=== PATIENT | female | born 1965 | race Caucasian/White ===

== ENCOUNTER 2023-03-19 22:25 | Inpatient (IN) | payer MEDICAID, OTHER ==
[2023-03-20] MEDS ORDERED: Acetaminophen 650 MG Suppository PR PRN (03:06)
[2023-03-20] MEDS ORDERED: Ondansetron PF 4 MG/2 ML Vial IVP PRN ×2 (03:06→12:17)
[2023-03-20] MEDS ORDERED: Dextrose 50% Abboject 50 ML SYRINGE SLOW IVP PRN (03:26)
[2023-03-20] MEDS ORDERED: Glucagon 1 MG/ML KIT IM PRN (03:26)
[2023-03-20] MEDS ORDERED: Dextrose 5% in Water 1,000 ML IV PRN (03:26)
[2023-03-20] MEDS: Piperacillin/Tazobactam 3.375 GM in Sodium Chloride 0.9% 100 ML IVPB SCH ×3 (04:39→19:21)
[2023-03-20] MEDS: Morphine 4 MG/ML VIAL SLOW IVP PRN ×2 (04:50→16:41)
[2023-03-20] MEDS: Acetaminophen 325 MG TAB PO PRN (04:54)
[2023-03-20] MEDS: Sodium Chloride 0.9% 1,000 ML IV SCH ×2 (06:06→14:20)
[2023-03-20 06:56] LABS: #Monocytes 1.6 thou/uL (0.11-0.59); #Neutrophils 13.6 thou/uL (1.40-6.50); %Basophils 0.2 % (0.0-1.0); %Eosinophils 0.1 % (0.0-10.0); %Lymphocytes 7.4 % (21.0-51.0); %Monocytes 9.5 % (0.0-10.0); %Neutrophils 82.2 % (42.0-75.0); Hematocrit 32.3 % (36.0-47.0); Hemoglobin 10.5 g/dL (12.0-16.0); Mean Corpuscular HGB CONC 32.5 g/dL (32.0-36.0); Mean Corpuscular Hemoglobin 31.2 pg (27.0-31.0); Mean Corpuscular Volume 95.8 fl (78.0-98.0); Mean Platelet Volume 11.2 fL (7.4-10.4); Platelet Count 154 10x3/uL (130-400); RBC Distribution Width 14.5 % (11.5-14.5); Red Blood Cell (RBC) Count 3.37 mill/uL (4.20-5.40); White Blood Cell (WBC) Count 16.5 10x3/uL (4.8-10.8)
[2023-03-20 07:49] LABS: Anion Gap 13 mmol/L (10-20); BUN (Urea Nitrogen) 27 mg/dL (9.8-20.1); Calc. Creatinine Clearance 105 mL/min (70-130); Calcium 7.8 mg/dL (7.8-10.44); Carbon Dioxide 20 mmol/L (22-29); Chloride 103 mmol/L (98-107); Estimated GFR 81; Glucose 190 mg/dL (70-105); Potassium 3.6 mmol/L (3.5-5.1); Sodium 132 mmol/L (136-145)
[2023-03-20 07:57] LABS: SARS-CoV-2 NAA Rapid Test Not Detected (NotDetected)
[2023-03-20] MEDS: Vancomycin (BATCH) 1.25 GM in Premix 1 BAG IVPB SCH ×2 (10:11→23:30)
[2023-03-20] MEDS ORDERED: PROPOFOL 20 ML ONE (11:09)
[2023-03-20] MEDS ORDERED: Ondansetron PF 4 MG/2 ML Vial ONE (11:40)
[2023-03-20] MEDS ORDERED: Dexamethasone 20 MG/5 ML VIAL ONE ×2 (11:40→11:58)
[2023-03-20] MEDS ORDERED: Lidocaine 1% PF 5 ML VIAL ONE (11:40)
[2023-03-20] MEDS ORDERED: fentaNYL 50 mcg/mL 1 mL Vial ONE (11:49)
[2023-03-20] MEDS ORDERED: PHENYLEPHRINE-NS 100 MCG/ML 10 ML SYRINGE ONE (11:57)
[2023-03-20] MEDS ORDERED: Promethazine HCl 25 MG/ML VIAL IM PRN (12:17)
[2023-03-20] MEDS ORDERED: Ipratropium/Albuterol 3 ML NEB NEB PRN (12:17)
[2023-03-20] MEDS: Gabapentin 300 MG CAP PO SCH ×2 (14:45→20:16)
[2023-03-20] MEDS: HumaLOG 300 UNITS/3 ML VIAL SC PRN ×2 (16:41→20:17)
[2023-03-20] MEDS: Metoprolol Tartrate 25 MG TAB PO SCH (20:16)
[2023-03-20] MEDS: metFORMIN 500 MG TAB PO SCH (20:16)
[2023-03-20] MEDS: Atorvastatin Calcium 10 MG TAB PO SCH (20:16)
[2023-03-20] MEDS: traMADol HCl 50 MG TAB PO PRN (20:19)
[2023-03-21] MEDS: Piperacillin/Tazobactam 3.375 GM in Sodium Chloride 0.9% 100 ML IVPB SCH ×3 (04:37→22:50)
[2023-03-21] MEDS: HumaLOG 300 UNITS/3 ML VIAL SC PRN ×2 (04:37→12:16)
[2023-03-21] MEDS: fentaNYL 50 mcg/mL 1 mL Vial SLOW IVP PRN ×2 (04:42→16:34)
[2023-03-21 05:08] LABS: #Monocytes 1.5 thou/uL (0.11-0.59); #Neutrophils 14.1 thou/uL (1.40-6.50); %Basophils 0.2 % (0.0-1.0); %Lymphocytes 6.6 % (21.0-51.0); %Monocytes 8.7 % (0.0-10.0); %Neutrophils 83.7 % (42.0-75.0); Hematocrit 36.3 % (36.0-47.0); Hemoglobin 11.5 g/dL (12.0-16.0); Mean Corpuscular HGB CONC 31.7 g/dL (32.0-36.0); Mean Corpuscular Hemoglobin 30.7 pg (27.0-31.0); Mean Corpuscular Volume 97.1 fl (78.0-98.0); Mean Platelet Volume 11.2 fL (7.4-10.4); Platelet Count 172 10x3/uL (130-400); RBC Distribution Width 14.5 % (11.5-14.5); Red Blood Cell (RBC) Count 3.74 mill/uL (4.20-5.40); White Blood Cell (WBC) Count 16.8 10x3/uL (4.8-10.8)
[2023-03-21 05:36] LABS: Anion Gap 14 mmol/L (10-20); BUN (Urea Nitrogen) 28 mg/dL (9.8-20.1); Calc. Creatinine Clearance 106 mL/min (70-130); Calcium 8.4 mg/dL (7.8-10.44); Carbon Dioxide 22 mmol/L (22-29); Chloride 103 mmol/L (98-107); Estimated GFR 82; Glucose 224 mg/dL (70-105); Sodium 135 mmol/L (136-145)
[2023-03-21 08:17] LABS: Vancomycin, Trough 22.8 ug/mL
[2023-03-21] MEDS: Vancomycin HCl 750 MG in Sodium Chloride 0.9% 250 ML 250 ML IVPB SCH ×2 (09:17→20:49)
[2023-03-21] MEDS: Metoprolol Tartrate 25 MG TAB PO SCH ×2 (09:18→20:48)
[2023-03-21] MEDS: Empagliflozin 10 MG TAB PO SCH (09:18)
[2023-03-21] MEDS: Famotidine 20 MG TAB PO SCH (09:18)
[2023-03-21] MEDS: metFORMIN 500 MG TAB PO SCH ×2 (09:18→20:49)
[2023-03-21] MEDS: Gabapentin 300 MG CAP PO SCH ×3 (09:18→20:46)
[2023-03-21] MEDS ORDERED: Magnevist 469MG/ML 20 ML VIAL ONE (12:11)
[2023-03-21] MEDS: traMADol HCl 50 MG TAB PO PRN (15:01)
[2023-03-21 16:58] VITALS: BMI 31.1
[2023-03-21] MEDS: Atorvastatin Calcium 10 MG TAB PO SCH (20:48)
[2023-03-22] MEDS: fentaNYL 50 mcg/mL 1 mL Vial SLOW IVP PRN ×3 (03:27→20:46)
[2023-03-22] MEDS: Piperacillin/Tazobactam 3.375 GM in Sodium Chloride 0.9% 100 ML IVPB SCH ×2 (05:18→11:31)
[2023-03-22] MEDS: Ondansetron ODT 4 MG TAB PO PRN (05:51)
[2023-03-22 06:36] LABS: #Basophils 0.1 thou/uL (0.0-0.2); #Eosinphils 0.2 thou/uL (0.0-0.7); #Monocytes 1.7 thou/uL (0.11-0.59); #Neutrophils 11.1 thou/uL (1.40-6.50); %Basophils 0.5 % (0.0-1.0); %Eosinophils 1.6 % (0.0-10.0); %Monocytes 10.8 % (0.0-10.0); %Neutrophils 72.2 % (42.0-75.0); Hematocrit 34.3 % (36.0-47.0); Hemoglobin 10.7 g/dL (12.0-16.0); Mean Corpuscular HGB CONC 31.2 g/dL (32.0-36.0); Mean Corpuscular Hemoglobin 30.3 pg (27.0-31.0); Mean Corpuscular Volume 97.2 fl (78.0-98.0); Platelet Count 175 10x3/uL (130-400); RBC Distribution Width 14.4 % (11.5-14.5); Red Blood Cell (RBC) Count 3.53 mill/uL (4.20-5.40); White Blood Cell (WBC) Count 15.3 10x3/uL (4.8-10.8)
[2023-03-22 07:03] LABS: Anion Gap 16 mmol/L (10-20); BUN (Urea Nitrogen) 19 mg/dL (9.8-20.1); CRP (Inflammatory) 9.56 mg/dL (= or < 0.5); Calc. Creatinine Clearance 127 mL/min (70-130); Calcium 8.2 mg/dL (7.8-10.44); Carbon Dioxide 18 mmol/L (22-29); Chloride 107 mmol/L (98-107); Estimated GFR 101; Glucose 117 mg/dL (70-105); Potassium 3.7 mmol/L (3.5-5.1); Sodium 137 mmol/L (136-145)
[2023-03-22] MEDS: Gabapentin 300 MG CAP PO SCH ×3 (09:25→20:37)
[2023-03-22] MEDS: Empagliflozin 10 MG TAB PO SCH (09:25)
[2023-03-22] MEDS: Metoprolol Tartrate 25 MG TAB PO SCH ×2 (09:25→20:37)
[2023-03-22] MEDS: Enoxaparin 30 MG (0.3 mL) SYRINGE SC SCH (09:25)
[2023-03-22] MEDS: metFORMIN 500 MG TAB PO SCH ×2 (09:25→20:37)
[2023-03-22] MEDS: Famotidine 20 MG TAB PO SCH (09:25)
[2023-03-22] MEDS: Vancomycin HCl 750 MG in Sodium Chloride 0.9% 250 ML 250 ML IVPB SCH ×2 (09:30→20:37)
[2023-03-22] MEDS: Atorvastatin Calcium 10 MG TAB PO SCH (20:37)
[2023-03-23] MEDS: Famotidine 20 MG TAB PO SCH (07:50)
[2023-03-23] MEDS: Empagliflozin 10 MG TAB PO SCH (07:51)
[2023-03-23] MEDS: Metoprolol Tartrate 25 MG TAB PO SCH ×2 (07:51→20:23)
[2023-03-23] MEDS: Gabapentin 300 MG CAP PO SCH ×3 (07:51→20:23)
[2023-03-23] MEDS: metFORMIN 500 MG TAB PO SCH ×2 (07:52→20:23)
[2023-03-23] MEDS: Vancomycin HCl 750 MG in Sodium Chloride 0.9% 250 ML 250 ML IVPB SCH ×2 (07:52→20:24)
[2023-03-23] MEDS: Enoxaparin 30 MG (0.3 mL) SYRINGE SC SCH (07:52)
[2023-03-23] MEDS ORDERED: hydrALAZINE 20 MG/ML VIAL SLOW IVP PRN (08:23)
[2023-03-23 09:43] LABS: #Basophils 0.1 thou/uL (0.0-0.2); #Eosinphils 0.3 thou/uL (0.0-0.7); #Monocytes 1.7 thou/uL (0.11-0.59); #Neutrophils 9.8 thou/uL (1.40-6.50); %Basophils 0.7 % (0.0-1.0); %Eosinophils 2.2 % (0.0-10.0); %Lymphocytes 14.2 % (21.0-51.0); %Monocytes 11.8 % (0.0-10.0); %Neutrophils 69.3 % (42.0-75.0); Hemoglobin 11.1 g/dL (12.0-16.0); Mean Corpuscular HGB CONC 31.7 g/dL (32.0-36.0); Mean Corpuscular Hemoglobin 30.5 pg (27.0-31.0); Mean Corpuscular Volume 96.2 fl (78.0-98.0); Mean Platelet Volume 11.1 fL (7.4-10.4); Platelet Count 184 10x3/uL (130-400); RBC Distribution Width 14.1 % (11.5-14.5); Red Blood Cell (RBC) Count 3.64 mill/uL (4.20-5.40); White Blood Cell (WBC) Count 14.1 10x3/uL (4.8-10.8)
[2023-03-23] MEDS: fentaNYL 50 mcg/mL 1 mL Vial SLOW IVP PRN ×2 (10:26→20:23)
[2023-03-23] MEDS: Amlodipine 5 MG TAB PO SCH (10:27)
[2023-03-23] MEDS: Atorvastatin Calcium 10 MG TAB PO SCH (20:22)
[2023-03-23 20:52] LABS: Vancomycin, Trough 13.3 ug/mL
[2023-03-24 06:11] LABS: #Basophils 0.1 thou/uL (0.0-0.2); #Eosinphils 0.4 thou/uL (0.0-0.7); #Monocytes 1.9 thou/uL (0.11-0.59); #Neutrophils 9.8 thou/uL (1.40-6.50); %Basophils 0.9 % (0.0-1.0); %Eosinophils 2.9 % (0.0-10.0); %Lymphocytes 15.1 % (21.0-51.0); %Monocytes 12.5 % (0.0-10.0); %Neutrophils 64.7 % (42.0-75.0); Hematocrit 32.5 % (36.0-47.0); Hemoglobin 10.5 g/dL (12.0-16.0); Mean Corpuscular HGB CONC 32.3 g/dL (32.0-36.0); Mean Corpuscular Hemoglobin 30.7 pg (27.0-31.0); Mean Platelet Volume 10.8 fL (7.4-10.4); Platelet Count 208 10x3/uL (130-400); Red Blood Cell (RBC) Count 3.42 mill/uL (4.20-5.40); White Blood Cell (WBC) Count 15.2 10x3/uL (4.8-10.8)
[2023-03-24 06:50] LABS: Anion Gap 18 mmol/L (10-20); BUN (Urea Nitrogen) 16 mg/dL (9.8-20.1); CK (CPK) 15 U/L (29-168); Calc. Creatinine Clearance 123 mL/min (70-130); Calcium 8.6 mg/dL (7.8-10.44); Carbon Dioxide 20 mmol/L (22-29); Chloride 105 mmol/L (98-107); Estimated GFR 98; Glucose 193 mg/dL (70-105); Potassium 3.5 mmol/L (3.5-5.1); Sodium 139 mmol/L (136-145)
[2023-03-24] MEDS: Enoxaparin 30 MG (0.3 mL) SYRINGE SC SCH (08:11)
[2023-03-24] MEDS: metFORMIN 500 MG TAB PO SCH ×2 (08:12→21:23)
[2023-03-24] MEDS: Amlodipine 5 MG TAB PO SCH (08:12)
[2023-03-24] MEDS: Gabapentin 300 MG CAP PO SCH ×3 (08:12→21:23)
[2023-03-24] MEDS: Famotidine 20 MG TAB PO SCH (08:13)
[2023-03-24] MEDS: Metoprolol Tartrate 25 MG TAB PO SCH ×2 (08:13→21:23)
[2023-03-24] MEDS: Empagliflozin 10 MG TAB PO SCH (08:13)
[2023-03-24] MEDS: Vancomycin 1 GM in Premix 1 BAG IVPB SCH ×2 (08:13→21:22)
[2023-03-24] MEDS: Acetaminophen 325 MG TAB PO PRN (08:17)
[2023-03-24] MEDS: fentaNYL 50 mcg/mL 1 mL Vial SLOW IVP PRN ×2 (11:20→22:04)
[2023-03-24] MEDS: HumaLOG 300 UNITS/3 ML VIAL SC PRN ×2 (14:29→22:13)
[2023-03-24] MEDS: Atorvastatin Calcium 10 MG TAB PO SCH (21:23)
[2023-03-24] MEDS: traMADol HCl 50 MG TAB PO PRN (21:26)
[2023-03-25] MEDS: HumaLOG 300 UNITS/3 ML VIAL SC PRN ×2 (05:04→14:25)
[2023-03-25] MEDS: fentaNYL 50 mcg/mL 1 mL Vial SLOW IVP PRN ×2 (06:27→09:48)
[2023-03-25] MEDS: Famotidine 20 MG TAB PO SCH (08:22)
[2023-03-25] MEDS: Gabapentin 300 MG CAP PO SCH ×3 (08:22→20:38)
[2023-03-25] MEDS: Enoxaparin 30 MG (0.3 mL) SYRINGE SC SCH (08:22)
[2023-03-25] MEDS: Amlodipine 5 MG TAB PO SCH (08:23)
[2023-03-25] MEDS: Metoprolol Tartrate 25 MG TAB PO SCH ×2 (08:23→20:38)
[2023-03-25] MEDS: metFORMIN 500 MG TAB PO SCH ×2 (08:23→20:38)
[2023-03-25] MEDS: Empagliflozin 10 MG TAB PO SCH (08:23)
[2023-03-25] MEDS: SODIUM CHLORIDE 0.9% IVPB SCH (08:30)
[2023-03-25] MEDS: DAPTOMYCIN IVPB SCH (08:30)
[2023-03-25] MEDS ORDERED: Iopamidol-370 76% 500 ML MDV (1 ML CHARGE) ONE (13:05)
[2023-03-25] MEDS: Atorvastatin Calcium 10 MG TAB PO SCH (20:38)
[2023-03-26] MEDS: fentaNYL 50 mcg/mL 1 mL Vial SLOW IVP PRN ×3 (00:06→22:55)
[2023-03-26] MEDS: Metoprolol Tartrate 25 MG TAB PO SCH ×2 (08:19→20:34)
[2023-03-26] MEDS: Famotidine 20 MG TAB PO SCH (08:19)
[2023-03-26] MEDS: metFORMIN 500 MG TAB PO SCH ×2 (08:19→20:34)
[2023-03-26] MEDS: Ondansetron ODT 4 MG TAB PO PRN (08:19)
[2023-03-26] MEDS: Gabapentin 300 MG CAP PO SCH ×3 (08:20→20:34)
[2023-03-26] MEDS: Amlodipine 5 MG TAB PO SCH (08:20)
[2023-03-26] MEDS: Empagliflozin 10 MG TAB PO SCH (08:20)
[2023-03-26] MEDS: DAPTOMYCIN IVPB SCH (08:21)
[2023-03-26] MEDS: SODIUM CHLORIDE 0.9% IVPB SCH (08:21)
[2023-03-26] MEDS: Enoxaparin 30 MG (0.3 mL) SYRINGE SC SCH (08:27)
[2023-03-26] MEDS: HumaLOG 300 UNITS/3 ML VIAL SC PRN ×2 (13:11→18:20)
[2023-03-26] MEDS: metroNIDAZOLE 500 MG TAB PO SCH ×2 (15:50→20:34)
[2023-03-26] MEDS: Acetaminophen 325 MG TAB PO PRN (16:17)
[2023-03-26] MEDS: Atorvastatin Calcium 10 MG TAB PO SCH (20:34)
[2023-03-27] MEDS ORDERED: Sodium Bicarbonate 0.5 MEQ/ML SDV 10 ML ONE (07:39)
[2023-03-27] MEDS ORDERED: Lidocaine 1% PF 5 ML VIAL ONE (07:39)
[2023-03-27] MEDS: Amlodipine 5 MG TAB PO SCH (08:28)
[2023-03-27] MEDS: metroNIDAZOLE 500 MG TAB PO SCH ×3 (08:28→20:29)
[2023-03-27] MEDS: Famotidine 20 MG TAB PO SCH (08:28)
[2023-03-27] MEDS: Gabapentin 300 MG CAP PO SCH ×3 (08:29→20:29)
[2023-03-27] MEDS: metFORMIN 500 MG TAB PO SCH ×2 (08:29→20:30)
[2023-03-27] MEDS: Empagliflozin 10 MG TAB PO SCH (08:29)
[2023-03-27] MEDS: Metoprolol Tartrate 25 MG TAB PO SCH ×2 (08:29→20:29)
[2023-03-27] MEDS: Enoxaparin 30 MG (0.3 mL) SYRINGE SC SCH (10:55)
[2023-03-27] MEDS: SODIUM CHLORIDE 0.9% IVPB SCH (10:55)
[2023-03-27] MEDS: DAPTOMYCIN IVPB SCH (10:55)
[2023-03-27] MEDS: fentaNYL 50 mcg/mL 1 mL Vial SLOW IVP PRN ×2 (10:55→23:10)
[2023-03-27] MEDS: HumaLOG 300 UNITS/3 ML VIAL SC PRN (13:07)
[2023-03-27] MEDS: Acetaminophen 325 MG TAB PO PRN (13:10)
[2023-03-27] MEDS: Atorvastatin Calcium 10 MG TAB PO SCH (20:30)
[2023-03-28 06:22] LABS: #Basophils 0.1 thou/uL (0.0-0.2); #Eosinphils 0.5 thou/uL (0.0-0.7); #Monocytes 1.5 thou/uL (0.11-0.59); #Neutrophils 9.9 thou/uL (1.40-6.50); %Basophils 0.4 % (0.0-1.0); %Eosinophils 3.1 % (0.0-10.0); %Lymphocytes 20.1 % (21.0-51.0); %Monocytes 9.8 % (0.0-10.0); %Neutrophils 63.6 % (42.0-75.0); Hematocrit 32.6 % (36.0-47.0); Hemoglobin 10.4 g/dL (12.0-16.0); Mean Corpuscular HGB CONC 31.9 g/dL (32.0-36.0); Mean Corpuscular Hemoglobin 30.9 pg (27.0-31.0); Mean Corpuscular Volume 96.7 fl (78.0-98.0); Platelet Count 270 10x3/uL (130-400); RBC Distribution Width 13.9 % (11.5-14.5); Red Blood Cell (RBC) Count 3.37 mill/uL (4.20-5.40); White Blood Cell (WBC) Count 15.6 10x3/uL (4.8-10.8)
[2023-03-28 06:45] LABS: ALT (SGPT) 62 U/L (8-55); AST (SGOT) 93 U/L (5-34); Albumin 3.1 g/dL (3.5-5.0); Alkaline Phosphatase 269 U/L (40-110); Anion Gap 14 mmol/L (10-20); BUN (Urea Nitrogen) 16 mg/dL (9.8-20.1); Bilirubin, Total 0.3 mg/dL (0.2-1.2); Calc. Creatinine Clearance 113 mL/min (70-130); Calcium 8.9 mg/dL (7.8-10.44); Carbon Dioxide 24 mmol/L (22-29); Chloride 102 mmol/L (98-107); Estimated GFR 89; Globulin 4.5 g/dL (2.4-3.5); Glucose 149 mg/dL (70-105); Potassium 4.3 mmol/L (3.5-5.1); Protein, Total 7.6 g/dL (6.0-8.3); Sodium 136 mmol/L (136-145)
[2023-03-28] MEDS: Empagliflozin 10 MG TAB PO SCH (09:51)
[2023-03-28] MEDS: Famotidine 20 MG TAB PO SCH (09:51)
[2023-03-28] MEDS: metroNIDAZOLE 500 MG TAB PO SCH ×2 (09:51→14:26)
[2023-03-28] MEDS: Gabapentin 300 MG CAP PO SCH ×2 (09:51→14:26)
[2023-03-28] MEDS: metFORMIN 500 MG TAB PO SCH (09:52)
[2023-03-28] MEDS: Amlodipine 5 MG TAB PO SCH (09:52)
[2023-03-28] MEDS: Enoxaparin 30 MG (0.3 mL) SYRINGE SC SCH (09:52)
[2023-03-28] MEDS: Metoprolol Tartrate 25 MG TAB PO SCH (09:52)
[2023-03-28] MEDS: fentaNYL 50 mcg/mL 1 mL Vial SLOW IVP PRN (09:56)
[2023-03-28] MEDS: DAPTOMYCIN IVPB SCH (09:59)
[2023-03-28] MEDS: SODIUM CHLORIDE 0.9% IVPB SCH (09:59)
[2023-03-28] MEDS: traMADol HCl 50 MG TAB PO PRN (15:58)
[2023-03-28 17:29] VITALS: BP 115/73; TEMP 97
[2023-03-29] MEDS ORDERED: Enoxaparin 40 MG (0.4 mL) SYRINGE SC SCH (09:00)
== END 2023-03-28 17:12 | disposition home or self-care (01) | DRG 854 ==
LOC: T4-B 03-20 02:23
PROVIDERS: ADMIT Student in an Organized Health Care Education/Training Program; ATTEND Hospitalist
PROC: 0KBW0ZZ Excision of Left Foot Muscle, Open Approach (ICD-10-PCS; 2023-03-20)
PROC: 0J9R0ZZ Drainage of Left Foot Subcutaneous Tissue and Fascia, Open Approach (ICD-10-PCS; 2023-03-20)
PROC: 3E033XZ Introduction of Vasopressor into Peripheral Vein, Percutaneous Approach (ICD-10-PCS; 2023-03-20)
PROC: 02HV33Z Insertion of Infusion Device into Superior Vena Cava, Percutaneous Approach (ICD-10-PCS; principal; 2023-03-27)
PROC: B5181ZA Fluoroscopy of Superior Vena Cava using Low Osmolar Contrast, Guidance (ICD-10-PCS; 2023-03-27)
PROC: B548ZZA Ultrasonography of Superior Vena Cava, Guidance (ICD-10-PCS; 2023-03-27)
DX: A41.02 Sepsis due to Methicillin resistant Staphylococcus aureus (principal); L02.612 Cutaneous abscess of left foot; L03.116 Cellulitis of left lower limb; M48.56XA Collapsed vertebra, not elsewhere classified, lumbar region, initial encounter for fracture; E11.628 Type 2 diabetes mellitus with other skin complications; I10 Essential (primary) hypertension; E66.9 Obesity, unspecified; R09.81 Nasal congestion; S91.302A Unspecified open wound, left foot, initial encounter; I25.10 Atherosclerotic heart disease of native coronary artery without angina pectoris; E11.621 Type 2 diabetes mellitus with foot ulcer; D63.8 Anemia in other chronic diseases classified elsewhere; E11.51 Type 2 diabetes mellitus with diabetic peripheral angiopathy without gangrene; Z95.1 Presence of aortocoronary bypass graft; Z89.511 Acquired absence of right leg below knee; Z98.890 Other specified postprocedural states; Z79.899 Other long term (current) drug therapy; Z79.84 Long term (current) use of oral hypoglycemic drugs; Z87.891 Personal history of nicotine dependence; Z11.52 Encounter for screening for COVID-19
CPT/HCPCS: 36415; 36416; 36569; 80048; 80053; 80202; 82550; 83036; 85025; 86140; 86850; 86900; 86901; 87040; 87070; 87076; 87077; 87149; 87186; 87205; 93306; 97139; A9579; C1751; J0878; J1100; J1650; J1815; J2270; J2405; J2543; J2704; J3010; J3370; J3370-JW; J3490; J7050; Q0162; Q9967

== ENCOUNTER 2023-09-25 10:21 | Emergency (ER) | payer OTHER, MEDICAID ==
[2023-09-25 11:18] LABS: #Basophils Less than 0.03 10x3/uL (0.0-0.2); #Eosinphils Less than 0.03 10x3/uL (0.0-0.7); %Basophils 0.3 % (0.0-1.0); %Lymphocytes 12.5 % (21.0-51.0); %Monocytes 12.5 % (0.0-10.0); %Neutrophils 74.2 % (42.0-75.0); Hematocrit 36.1 % (36.0-47.0); Hemoglobin 11.3 g/dL (12.0-16.0); Mean Corpuscular HGB CONC 31.3 g/dL (32.0-36.0); Mean Corpuscular Hemoglobin 27.2 pg (27.0-31.0); Mean Platelet Volume 11.7 fL (7.4-10.4); Platelet Count 191 10x3/uL (130-400); RBC Distribution Width 17.3 % (11.5-14.5); Red Blood Cell (RBC) Count 4.15 mill/uL (4.20-5.40)
[2023-09-25 11:27] LABS: ALT (SGPT) 20 U/L (8-55); AST (SGOT) 24 U/L (5-34); Acetaminophen Less than 10 mcg/mL (10.0-30.0); Albumin 3.3 g/dL (3.5-5.0); Alcohol Less than 10.0 mg/dL (Less than 10); Alkaline Phosphatase 131 U/L (40-110); Anion Gap 20 mmol/L (10-20); BUN (Urea Nitrogen) 31 mg/dL (9.8-20.1); Bilirubin, Total 0.4 mg/dL (0.2-1.2); CK (CPK) 30 U/L (29-168); Calc. Creatinine Clearance 0 mL/min (70-130); Carbon Dioxide 22 mmol/L (22-29); Chloride 99 mmol/L (98-107); Estimated GFR 62; Globulin 5.2 g/dL (2.4-3.5); Glucose 290 mg/dL (70-105); Potassium 3.9 mmol/L (3.5-5.1); Protein, Total 8.5 g/dL (6.0-8.3); Salicylate Less than 8.0 mg/dL (15.0-30.0); Sodium 137 mmol/L (136-145)
[2023-09-25 11:48] LABS: Troponin I 0.017 ng/mL (< 0.028)
[2023-09-25 12:13] LABS: Influenza A by NAA Not Detected (NotDetected); Influenza B by NAA Not Detected (NotDetected); SARS-CoV-2 NAA Rapid Test DETECTED (NotDetected)
== END 2023-09-25 16:02 | disposition home or self-care (01) ==
LOC: ERS 10:21
DX: U07.1 COVID-19 (principal); E11.9 Type 2 diabetes mellitus without complications; I10 Essential (primary) hypertension
CPT/HCPCS: 0240U; 71045; 80307; 82550; 82962; 83880; 84484; 93005; 36416; 80053; 84443; 85025